=== PATIENT | male | born 2000 | race Caucasian/White ===

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

== ENCOUNTER 2019-01-01 17:53 | Emergency (ER) | payer SELFPAY ==
[~2019-01-01] VITALS: Ht 167.6 cm; Wt 60.0 kg
[~2019-01-01 17:53] MED LIST changes: +AUGM875T28 PO; +MECL-68 PO
[2019-01-01 17:54] VITALS: BP 133/80
== END 2019-01-01 20:00 | disposition left against medical advice (07) ==
LOC: M ED 17:53
DX: R42 Dizziness and giddiness (principal); Z53.21 Procedure and treatment not carried out due to patient leaving prior to being seen by health care provider

== ENCOUNTER 2020-08-30 23:12 | Emergency (ER) | payer OTHER, SELFPAY ==
[~2020-08-30] VITALS: Ht 167.6 cm; Wt 60.0 kg
[~2020-08-30 23:12] MED LIST changes: -MECL-68 PO; +MECL1TAB31 PO
--- OUTSIDE RECORDS SUMMARY | 2020-08-30 23:17 | CCD ---
Author Author [facility] Organization [facility] Address Unknown Phone Unavailable Care Team Providers Care Merchant Banker Name Role Phone Ana Tong Unavailable Unavailable Clifford TongBC Unavailable Unavailable Tong, F Ana PRINT COLOR OPERATOR-BC Unavailable Unavailable Tong, F Ana PRINT COLOR OPERATOR-BC Unavailable Unavailable Tong, F Ana PRINT COLOR OPERATOR-BC Unavailable Unavailable Tong, F Ana PRINT COLOR OPERATOR-BC Unavailable Unavailable Tong, F Ana PRINT COLOR OPERATOR-BC Unavailable Unavailable Tong, F Ana PRINT COLOR OPERATOR-BC Unavailable Unavailable Tong, F Ana PRINT COLOR OPERATOR-BC Unavailable Unavailable Tong, F Ana PRINT COLOR OPERATOR-BC Unavailable Unavailable Tong, F Ana PRINT COLOR OPERATOR-BC Unavailable Unavailable Tong, F Ana PRINT COLOR OPERATOR-BC Unavailable Unavailable Tong, F Ana PRINT COLOR OPERATOR-BC Unavailable Unavailable Tong, F Ana PRINT COLOR OPERATOR-BC Unavailable Unavailable Tong, F Ana PRINT COLOR OPERATOR-BC Unavailable Unavailable Tong, F Ana PRINT COLOR OPERATOR-BC Unavailable Unavailable Tong, F Ana PRINT COLOR OPERATOR-BC Unavailable Unavailable Tong, F Ana PRINT COLOR OPERATOR-BC Unavailable Unavailable Tong, F Ana PRINT COLOR OPERATOR-BC Unavailable Unavailable Tong, F Ana PRINT COLOR OPERATOR-BC Unavailable Unavailable Tong, F Ana PRINT COLOR OPERATOR-BC Unavailable Unavailable Tong, F Ana PRINT COLOR OPERATOR-BC Unavailable Unavailable Re-disclosure Warning The records that you are about to access may contain information from federally-assisted alcohol or drug abuse programs. If such information is present, then the following federally mandated warning applies: This information has been disclosed to you from records protected by federal confidentiality rules (42 CFR part 2). The federal rules prohibit you from making any further disclosure of this information unless further disclosure is expressly permitted by the written consent of the person to whom it pertains or as otherwise permitted by 42 CFR part 2. A general authorization for the release of medical or other information is NOT sufficient for this purpose. The Federal rules restrict any use of the information to criminally investigate or prosecute any alcohol or drug abuse patient.The records that you are about to access may contain highly sensitive health information, the redisclosure of which is protected by Article 27-F of the [facility] Public Health law. If you continue you may have access to information: Regarding HIV / AIDS; Provided by facilities licensed or operated by the [facility] Office of Mental Health; or Provided by the [facility] Office for People With Developmental Disabilities. If such information is present, then the following [facility] mandated warning applies: This information has been disclosed to you from confidential records which are protected by state law. State law prohibits you from making any further disclosure of this information without the specific written consent of the person to whom it pertains, or as otherwise permitted by law. Any unauthorized further disclosure in violation of state law may result in a fine or fci sentence or both. A general authorization for the release of medical or other information is NOT sufficient authorization for further disc losure. Encounters Encounter Providers Location Date Indications Data Source(s ) Outpatient Attender: ROBERT JONES 01/27/2020 07:25:12 PM EDT [facility] Outpatient Attender: ROBERT JONES 01/17/2020 12:03:16 AM EDT [facility] Outpatient Attender: Ana Ran SANDERSONP-BC 01/01/2020 03: 56:00 PM EDT [facility] Outpatient Attender: ROBERT JONES 08/19/2019 08:59:01 AM [facility] Outpatient Attender: Ana Ran SANDERSONP-BC 08/18/2019 02: 53:01 PM [facility] Outpatient Attender: ROBERT JONES 08/18/2019 02:53:00 PM [facility] Insurance Providers Payer name Policy type / Coverage type Policy ID Covered libertarian ID Covered libertarian's relationship to covarrubias Policy Covarrubias Plan Information SELF PAY ONLY [id number] SP [id number] Managed Care [place] P [id number] S [id number] Medicaid S [id number] S [id number] MEDICAID [id number] SP [id number] SELF PAY O [id number] S [id number] ERROL [id number] SP [id number] Managed Care [place] P [id number] S [id number] SELF PAY UNAVAILABLE WC2 UNAVAIL[place] BLE [facility] [id number] SP [id number] [facility] [id number] FA [id number] MEDICAID [id number] SP [id number] Self Pay S UNAVAILABLE S [place] BLE Medicaid P [id number] S [id number] zzMedicaid FFS S [id number] S [id number] Self Pay P na S na Medicaid Dental O [id number] S [id number]
--- OUTSIDE RECORDS SUMMARY | 2020-08-31 01:55 | CCD ---
Author Author [facility] Organization [facility] Address Unknown Phone Unavailable Care Team Providers Care Tip Stitcher Name Role Phone Ana Tong Unavailable Unavailable Clifford Tong Unavailable Unavailable Clifford Tong Unavailable Unavailable Tong, F Ana MARKETING FINANCE SPECIALIST-BC Unavailable Unavailable Tong, F Ana MARKETING FINANCE SPECIALIST-BC Unavailable Unavailable Tong, F Ana MARKETING FINANCE SPECIALIST-BC Unavailable Unavailable Tong, F Ana MARKETING FINANCE SPECIALIST-BC Unavailable Unavailable Tong, F Ana MARKETING FINANCE SPECIALIST-BC Unavailable Unavailable Tong, F Ana MARKETING FINANCE SPECIALIST-BC Unavailable Unavailable Tong, F Ana MARKETING FINANCE SPECIALIST-BC Unavailable Unavailable Tong, F Ana MARKETING FINANCE SPECIALIST-BC Unavailable Unavailable Tong, F Ana MARKETING FINANCE SPECIALIST-BC Unavailable Unavailable Tong, F Ana MARKETING FINANCE SPECIALIST-BC Unavailable Unavailable Tong, F Ana MARKETING FINANCE SPECIALIST-BC Unavailable Unavailable Tong, F Ana MARKETING FINANCE SPECIALIST-BC Unavailable Unavailable Tong, F Ana MARKETING FINANCE SPECIALIST-BC Unavailable Unavailable Tong, F Ana MARKETING FINANCE SPECIALIST-BC Unavailable Unavailable Tong, F Ana MARKETING FINANCE SPECIALIST-BC Unavailable Unavailable Tong, F Ana MARKETING FINANCE SPECIALIST-BC Unavailable Unavailable Tong, F Ana MARKETING FINANCE SPECIALIST-BC Unavailable Unavailable Tong, F Ana MARKETING FINANCE SPECIALIST-BC Unavailable Unavailable Tong, F Ana MARKETING FINANCE SPECIALIST-BC Unavailable Unavailable Re-disclosure Warning The records that [...] is protected by Article 27-F of the [facility] Public Health law. If you continue you may have access to information: Regarding HIV / AIDS; Provided by facilities licensed or operated by the [facility] Office of Mental Health; or Provided by the [facility] Office for People With Developmental Disabilities. If such information is present, then the following [facility] mandated warning applies: This information has [...] law may result in a fine or fpc sentence or both. A general authorization for the release of medical or other information is NOT sufficient authorization for further disc losure. Encounters Encounter Providers Location Date Indications Data Source(s ) Outpatient Attender: ROBERT JONES 01/27/2020 07:25:12 PM EDT [facility] Outpatient Attender: ROBERT JONES 01/17/2020 12:03:16 AM EDT [facility] Outpatient Attender: Anaalex JONES-BC 01/01/2020 03: 56:00 PM EDT [facility] Outpatient Attender: ROBERT JONES 08/19/2019 08:59:01 AM [facility] Outpatient Attender: Anaalex SANDERSONP-BC 08/18/2019 02: 53:01 PM [facility] Outpatient Attender: ROBERT JONES 08/18/2019 02:53:00 PM [facility] Insurance Providers Payer name Policy type / Coverage type Policy ID Covered democrat ID Covered democrat's relationship to covarrubias Policy Covarrubias Plan Information SELF PAY ONLY [id number] SP [id number] Managed Care [place] P [id number] S [id number] Medicaid S [id number] S [id number] MEDICAID [id number] SP [id number] SELF PAY O [id number] S [id number] ERROL [id number] SP [id number] Managed Care [place] P [id number] S [id number] SELF PAY UNAVAILABLE WC2 UNA[place] BLE [facility] [id number] SP [id number] [facility] [id number] 09 [id number] MEDICAID [id number] SP [id number] Self Pay S UNAVAILABLE S [place] BLE Medicaid P [id number] S [id number] zzMedicaid FFS S [id number] S [id number] Self Pay P na S na Medicaid Dental O [id number] S [id number]
--- NOTE | 2020-08-31 02:17 | REPVR ---
PROCEDURE INFORMATION: Exam: XR Abdomen, 1 View Exam date and time: 08/31/2020 1:34 AM Age: 20 years old Clinical indication: Abdominal pain; Acute; Additional info: Bilat testicular pain, penile "thickening" TECHNIQUE: Imaging protocol: XR of the abdomen. Views: Frontal supine view of the abdomen. 1 View. COMPARISON: Scrotal, US 08/31/2020 1:56:34 AM FINDINGS: Gastrointestinal tract: Unremarkable. No bowel dilation is noted. Bones/joints: Unremarkable. Soft tissues: No obvious soft tissue gas is identified. IMPRESSION: No acute findings. Electronically signed by: Drake Sandoval On 08/31/2020 02:17:35 AM
--- NOTE | 2020-08-31 02:22 | REPVR ---
PROCEDURE INFORMATION: Exam: US Scrotum and US Duplex Artery and Vein, Scrotum, Complete Exam date and time: 08/31/2020 2:11 AM Age: 20 years old Clinical indication: Scrotum pain; Additional info: Testicular pain bilaterally, penile "thickening" TECHNIQUE: Imaging protocol: Real-time ultrasound of the scrotum. Real-time duplex ultrasound scan of the arterial and venous flow of the scrotum with B-mode, color Doppler flow and spectral waveform analysis. Complete exam. Duplex images required to evaluate vascular conditions. COMPARISON: No relevant prior studies available. FINDINGS: Right testicle: Normal. No mass. No torsion. No orchitis. Normal Duplex waveforms and color doppler. The right testicle measures 4.6 cm x 2.4 cm x 2.9 cm. Left testicle: Normal. No mass. No torsion. No orchitis. Normal Duplex waveforms and color doppler. The left testicle measures 4.5 cm x 2.2 cm x 2.7 cm. Epididymides: Normal. No epididymitis. Scrotum: Normal. No hydrocele. IMPRESSION: Normal scrotal ultrasound. Electronically signed by: Drake Sandoval On 08/31/2020 02:23:22 AM
[2020-08-31 04:15] LABS: CHLAMYDIA DNA AMPLIFICATION NEGATIVE (NEGATIVE); GC DNA AMPLIFICATION NEGATIVE (NEGATIVE)
[2020-08-31 05:25] VITALS: BP 150/87
== END 2020-08-31 05:35 | disposition home or self-care (01) ==
LOC: M ED 23:12
DX: R10.9 Unspecified abdominal pain (principal); F41.9 Anxiety disorder, unspecified

== ENCOUNTER 2020-09-08 02:46 | Emergency (ER) | payer OTHER ==
[~2020-09-08] VITALS: Ht 167.6 cm; Wt 60.1 kg
--- OUTSIDE RECORDS SUMMARY | 2020-09-08 02:55 | CCD ---
Author Author [facility] Organization [facility] Address Unknown Phone Unavailable Care Team Providers Care Pharmaceutical Compounding Supervisor Name Role Phone Ana Tong Unavailable Unavailable Clifford Tong Unavailable Unavailable Clifford Tong Unavailable Unavailable Tong, F Ana TUCKPOINTER CLEANER CAULKER-BC Unavailable Unavailable Tong, F Ana TUCKPOINTER CLEANER CAULKER-BC Unavailable Unavailable Tong, F Ana TUCKPOINTER CLEANER CAULKER-BC Unavailable Unavailable Tong, F Ana TUCKPOINTER CLEANER CAULKER-BC Unavailable Unavailable Tong, F Ana TUCKPOINTER CLEANER CAULKER-BC Unavailable Unavailable Tong, F Ana TUCKPOINTER CLEANER CAULKER-BC Unavailable Unavailable Tong, F Ana TUCKPOINTER CLEANER CAULKER-BC Unavailable Unavailable Tong, F Ana TUCKPOINTER CLEANER CAULKER-BC Unavailable Unavailable Tong, F Ana TUCKPOINTER CLEANER CAULKER-BC Unavailable Unavailable Tong, F Ana TUCKPOINTER CLEANER CAULKER-BC Unavailable Unavailable Tong, F Ana TUCKPOINTER CLEANER CAULKER-BC Unavailable Unavailable Tong, F Ana TUCKPOINTER CLEANER CAULKER-BC Unavailable Unavailable Tong, F Ana TUCKPOINTER CLEANER CAULKER-BC Unavailable Unavailable Tong, F Ana TUCKPOINTER CLEANER CAULKER-BC Unavailable Unavailable Tong, F Ana TUCKPOINTER CLEANER CAULKER-BC Unavailable Unavailable Tong, F Ana TUCKPOINTER CLEANER CAULKER-BC Unavailable Unavailable Tong, F Ana TUCKPOINTER CLEANER CAULKER-BC Unavailable Unavailable Tong, F Ana TUCKPOINTER CLEANER CAULKER-BC Unavailable Unavailable Tong, F Ana TUCKPOINTER CLEANER CAULKER-BC Unavailable Unavailable Tong, F Ana TUCKPOINTER CLEANER CAULKER-BC Unavailable Unavailable Re-disclosure Warning The records that [...] is protected by Article 27-F of the [facility] Public Health law. If you continue you may have access to information: Regarding HIV / AIDS; Provided by facilities licensed or operated by the [facility] Office of Mental Health; or Provided by the [facility] Office for People With Developmental Disabilities. If such information is present, then the following [facility] mandated warning applies: This information has [...] law may result in a fine or nursing home sentence or both. A general authorization for the release of medical or other information is NOT sufficient authorization for further disc losure. Encounters Encounter Providers Location Date Indications Data Source(s ) Outpatient Attender: ROBERT JONES 01/27/2020 07:25:12 PM EDT [facility] Outpatient Attender: ROBERT JONES 01/17/2020 12:03:16 AM EDT [facility] Outpatient Attender: Anaalex SANDERSONP-BC 01/01/2020 03: 56:00 PM EDT [facility] Outpatient Attender: ROBERT JONES 08/19/2019 08:59:01 AM [facility] Outpatient Attender: Anaalex JONES-BC 08/18/2019 02: 53:01 PM [facility] Outpatient Attender: ROBERT JONES 08/18/2019 02:53:00 PM [facility] Insurance Providers Payer name Policy type / Coverage type Policy ID Covered libertarian ID Covered libertarian's relationship to covarrubias Policy Covarrubias Plan Information ERROL [id number] SP [id number] ERROL [id number] SP [id number] SELF PAY ONLY [id number] SP [id number] Managed Care [place] P [id number] S [id number] Medicaid S [id number] S [id number] MEDICAID [id number] SP [id number] SELF PAY O [id number] S [id number] Managed Care [place] P [id number] S [id number] SELF PAY UNAVAILABLE WC2 UNAVAILA BLE [facility] [id number] SP [id number] [facility] [id number] MEDICAID [id number] SP [id number] Self Pay S UNAVAILABLE S U[place] BLE Medicaid P [id number] S [id number] zzMedicaid FFS S [id number] S [id number] Self Pay P na S na Medicaid Dental O [id number] S [id number]
[2020-09-08] MEDS ORDERED: COLA100C5 PO (06:50)
[2020-09-08] MEDS ORDERED: DULC10SU2 PR (06:50)
[2020-09-08] MEDS ORDERED: HYDR25OIN TOP (06:50)
--- OUTSIDE RECORDS SUMMARY | 2020-09-08 06:58 | CCD ---
Author Author [facility] Organization [facility] Address Unknown Phone Unavailable Care Team Providers Care Debrander Name Role Phone Ana Tong Unavailable Unavailable Clifford Tong Unavailable Unavailable Clifford Tong Unavailable Unavailable Tong, F Ana SOFTWARE IMPLEMENTATION PROJECT MANAGER-BC Unavailable Unavailable Tong, F Ana SOFTWARE IMPLEMENTATION PROJECT MANAGER-BC Unavailable Unavailable Tong, F Ana SOFTWARE IMPLEMENTATION PROJECT MANAGER-BC Unavailable Unavailable Tong, F Ana SOFTWARE IMPLEMENTATION PROJECT MANAGER-BC Unavailable Unavailable Tong, F Ana SOFTWARE IMPLEMENTATION PROJECT MANAGER-BC Unavailable Unavailable Tong, F Ana SOFTWARE IMPLEMENTATION PROJECT MANAGER-BC Unavailable Unavailable Tong, F Ana SOFTWARE IMPLEMENTATION PROJECT MANAGER-BC Unavailable Unavailable Tong, F Ana SOFTWARE IMPLEMENTATION PROJECT MANAGER-BC Unavailable Unavailable Tong, F Ana SOFTWARE IMPLEMENTATION PROJECT MANAGER-BC Unavailable Unavailable Tong, F Ana SOFTWARE IMPLEMENTATION PROJECT MANAGER-BC Unavailable Unavailable Tong, F Ana SOFTWARE IMPLEMENTATION PROJECT MANAGER-BC Unavailable Unavailable Tong, F Ana SOFTWARE IMPLEMENTATION PROJECT MANAGER-BC Unavailable Unavailable Tong, F Ana SOFTWARE IMPLEMENTATION PROJECT MANAGER-BC Unavailable Unavailable Tong, F Ana SOFTWARE IMPLEMENTATION PROJECT MANAGER-BC Unavailable Unavailable Tong, F Ana SOFTWARE IMPLEMENTATION PROJECT MANAGER-BC Unavailable Unavailable Tong, F Ana SOFTWARE IMPLEMENTATION PROJECT MANAGER-BC Unavailable Unavailable Tong, F Ana SOFTWARE IMPLEMENTATION PROJECT MANAGER-BC Unavailable Unavailable Tong, F Ana SOFTWARE IMPLEMENTATION PROJECT MANAGER-BC Unavailable Unavailable Tong, F Ana SOFTWARE IMPLEMENTATION PROJECT MANAGER-BC Unavailable Unavailable Tong, F Ana SOFTWARE IMPLEMENTATION PROJECT MANAGER-BC Unavailable Unavailable Re-disclosure Warning The records that [...] is protected by Article 27-F of the [facility] Public Health law. If you continue you may have access to information: Regarding HIV / AIDS; Provided by facilities licensed or operated by the [facility] Office of Mental Health; or Provided by the [facility] Office for People With Developmental Disabilities. If such information is present, then the following [facility] mandated warning applies: This information has been [...] law may result in a fine or mcc sentence or both. A general authorization for the release of medical or other information is NOT sufficient authorization for further disc losure. Encounters Encounter Providers Location Date Indications Data Source(s ) Outpatient Attender: ROBERT JONES 01/27/2020 07:25:12 PM EDT [facility] Outpatient Attender: ROBERT JONES 01/17/2020 12:03:16 AM EDT [facility] Outpatient Attender: Anaalex SANDERSONP-BC 01/01/2020 03: 56:00 PM EDT [facility] Outpatient Attender: ROBERT JONES 08/19/2019 08:59:01 AM [facility] Outpatient Attender: Anaalex JONES-BC 08/18/2019 02: 53:01 PM [facility] Outpatient Attender: ROBERT JONES 08/18/2019 02:53:00 PM [facility] Insurance Providers Payer name Policy type / Coverage type Policy ID Covered constitution party ID Covered constitution party's relationship to covarrubias Policy Covarrubias Plan Information ERROL [id number] SP [id number] 100 ERROL [id number] SP [id number] SELF PAY ONLY [id number] SP [id number] Managed Care [place] P [id number] S [id number] Medicaid S [id number] S [id number] MEDICAID [id number] SP [id number] SELF PAY O [id number] S [id number] Managed Care [place] P [id number] S [id number] SELF PAY UNAVAILABLE WC2 UNAVAILA BLE [facility] [id number] SP [id number] [facility] [id number] MEDICAID [id number] SP [id number] Self Pay S UNAVAILABLE S [place] BLE Medicaid P [id number] S [id number] zzMedicaid FFS S [id number] S [id number] Self Pay P na S na Medicaid Dental O [id number] S [id number]
[2020-09-08 07:19] VITALS: BP 113/72
== END 2020-09-08 07:25 | disposition home or self-care (01) ==
LOC: M ED 02:46
DX: R21 Rash and other nonspecific skin eruption (principal); K59.00 Constipation, unspecified

== ENCOUNTER 2022-08-19 02:42 | Inpatient (IN) | payer OTHER ==
[~2022-08-19] VITALS: Ht 167.6 cm; Wt 59.1 kg
[~2022-08-19 02:42] MED LIST changes: +COLA100C5 PO; +DULC10SU2 PR; +HYDR25OIN TOP
[2022-08-19 03:18] LABS: HEMATOCRIT 46.9 % (42.0-52.0); HEMOGLOBIN 16.8 g/dl (13.5-17.5); MEAN CORPUSCULAR HEMOGLOBIN 29.5 pg (27.0-33.0); MEAN CORPUSCULAR HGB CONC 35.8 g/dl (32.0-36.5); MEAN CORPUSCULAR VOLUME 82.4 fl (80.0-96.0); PLATELET COUNT, AUTOMATED 327 10^3/uL (150-450); RED BLOOD COUNT 5.69 10^6/uL (4.30-6.10); WHITE BLOOD COUNT 8.7 10^3/uL (4.0-10.0)
[2022-08-19 03:53] LABS: RSV AMPLIFICATION NEGATIVE (NEGATIVE)
[2022-08-19 04:18] LABS: ETHYL ALCOHOL (ETHANOL) 0.127 % (0.000-0.010)
[2022-08-19 04:19] LABS: SALICYLATE LEVEL < 3.0 MG/DL (<30)
[2022-08-19 04:20] LABS: BILIRUBIN,DIRECT 0.7 MG/DL (<0.4)
[2022-08-19 04:41] LABS: ACETAMINOPHEN LEVEL < 2.0 UG/ML (10.0-20.0); ALBUMIN 4.6 G/DL (3.2-5.2); ALKALINE PHOSPHATASE 89 U/L (46-116); ALT/SGPT 15 U/L (7.0-40); AST/SGOT 19 U/L (<34); BILIRUBIN,TOTAL 2.3 MG/DL (0.3-1.2); BLOOD UREA NITROGEN < 5 MG/DL (9-23); CALCIUM LEVEL 9.4 MG/DL (8.5-10.1); CARBON DIOXIDE LEVEL 21 MMOL/L (20-31); CHLORIDE LEVEL 103 MMOL/L (98-107); CREATININE FOR GFR 0.67 MG/DL (0.70-1.30); GLOMERULAR FILTRATION RATE > 60.0 (>60); GLUCOSE, FASTING 107 MG/DL (60-100); POTASSIUM SERUM 3.6 MMOL/L (3.5-5.1); SODIUM LEVEL 140 MMOL/L (136-145); TOTAL PROTEIN 7.6 G/DL (5.7-8.2)
[2022-08-19 04:47] LABS: AMPHETAMINES LEVEL URINE NEGATIVE (NEGATIVE); BARBITURATES URINE NEGATIVE (NEGATIVE); BENZODIAZEPINES URINE NEGATIVE (NEGATIVE); CANNABINOIDS URINE NEGATIVE (NEGATIVE); COCAINE METABOLITE URINE NEGATIVE (NEGATIVE); METHADONE URINE NEGATIVE (NEGATIVE); OPIATES URINE NEGATIVE (NEGATIVE); PHENCYCLIDINE URINE NEGATIVE (NEGATIVE)
[2022-08-19] MEDS ORDERED: traZODone 50 MG TAB PO PRN (06:45)
[2022-08-19] MEDS ORDERED: MAALOX 30 ML SUSP *UDC PO PRN (06:45)
[2022-08-19] MEDS ORDERED: ACETAMINOPHEN TAB 650MG DOSE (2X325MG) PO PRN (06:45)
[2022-08-19] MEDS ORDERED: MOM 30ML SUSPENSION UDC PO PRN (06:45)
[2022-08-19] MEDS ORDERED: LORazepam 2 MG TAB PO PRN (06:45)
[2022-08-19] MEDS ORDERED: HOME MED LIST COMPLETE! XX SCH (08:55)
[2022-08-19 09:00] VITALS: BP 125/88
[2022-08-19] MEDS: NICOTINE 14 MG/24 HR TRANSDERMAL TD SCH (09:00)
[2022-08-19] MEDS: MULTIVITAMINS/MINERALS THERAP 1 TAB PO SCH (10:07)
[2022-08-19] MEDS: THIAMINE 100 MG TAB PO SCH ×2 (10:07→22:33)
[2022-08-19] MEDS: FOLIC ACID 1MG TAB PO SCH (10:07)
[2022-08-19 11:50] VITALS: BP 137/95
[2022-08-19 17:00] VITALS: BP 138/79
[2022-08-19 23:50] VITALS: BP 137/95
[2022-08-20 07:00] VITALS: BP 121/79
[2022-08-20] MEDS: NICOTINE 14 MG/24 HR TRANSDERMAL TD SCH ×2 (09:00→09:28)
[2022-08-20] MEDS: MULTIVITAMINS/MINERALS THERAP 1 TAB PO SCH (09:20)
[2022-08-20] MEDS: FOLIC ACID 1MG TAB PO SCH (09:20)
[2022-08-20] MEDS: SERTRALINE HCL 25 MG TABLET PO SCH (09:21)
[2022-08-20] MEDS: THIAMINE 100 MG TAB PO SCH ×2 (09:21→20:53)
[2022-08-20 18:00] VITALS: BP 109/60
[2022-08-21 06:15] VITALS: BP 127/76
[2022-08-21] MEDS: FOLIC ACID 1MG TAB PO SCH (09:25)
[2022-08-21] MEDS: SERTRALINE HCL 25 MG TABLET PO SCH (09:25)
[2022-08-21] MEDS: THIAMINE 100 MG TAB PO SCH ×2 (09:25→21:27)
[2022-08-21] MEDS: NICOTINE 14 MG/24 HR TRANSDERMAL TD SCH (09:25)
[2022-08-21] MEDS: MULTIVITAMINS/MINERALS THERAP 1 TAB PO SCH (09:25)
[2022-08-21] MEDS ORDERED: NICO14PA TD (10:53)
[2022-08-21] MEDS ORDERED: SERT-141 PO (10:53)
[2022-08-21 16:21] VITALS: BP 137/85
[2022-08-22 06:39] VITALS: BP 121/68
[2022-08-22] MEDS: NICOTINE 14 MG/24 HR TRANSDERMAL TD SCH (08:43)
[2022-08-22] MEDS: SERTRALINE HCL 25 MG TABLET PO SCH (08:45)
[2022-08-22] MEDS: FOLIC ACID 1MG TAB PO SCH (08:45)
[2022-08-22] MEDS: MULTIVITAMINS/MINERALS THERAP 1 TAB PO SCH (08:45)
== END 2022-08-22 12:05 | disposition home or self-care (01) | DRG 753 ==
LOC: M ED 02:42 → M ED INP 06:42 → M PSY 09:03
PROVIDERS: ADMIT Student in an Organized Health Care Education/Training Program; ATTEND Psychiatry & Neurology Psychiatry
DX: F32.89 Other specified depressive episodes (principal); F60.89 Other specific personality disorders; F60.3 Borderline personality disorder; F10.920 Alcohol use, unspecified with intoxication, uncomplicated; Z56.0 Unemployment, unspecified; R45.851 Suicidal ideations; F17.290 Nicotine dependence, other tobacco product, uncomplicated; E80.6 Other disorders of bilirubin metabolism; Z20.822 Contact with and (suspected) exposure to COVID-19

== ENCOUNTER 2022-10-02 21:16 | Emergency (ER) | payer OTHER ==
[~2022-10-02] VITALS: Ht 167.6 cm; Wt 58.0 kg
[~2022-10-02 21:16] MED LIST changes: +NICO14PA TD; +SERT-141 PO
[2022-10-03] MEDS ORDERED: BOOSTRIX/ADACEL VACCINE (DIPHTH/PERTUSS/ACELL/TETANUS) 0.5ML SYR IM ONE (01:05)
[2022-10-03] MEDS ORDERED: DERMABOND TOPICAL SKIN ADHESIVE TOP ONE (01:05)
[2022-10-03 01:45] VITALS: BP 118/64
== END 2022-10-03 03:42 | disposition home or self-care (01) ==
LOC: M ED 21:16
DX: S61.214A Laceration without foreign body of right ring finger without damage to nail, initial encounter (principal); S61.210A Laceration without foreign body of right index finger without damage to nail, initial encounter; Y28.9XXA Contact with unspecified sharp object, undetermined intent, initial encounter; Y92.099 Unspecified place in other non-institutional residence as the place of occurrence of the external cause; Y93.89 Activity, other specified; J45.909 Unspecified asthma, uncomplicated; F41.9 Anxiety disorder, unspecified; F17.290 Nicotine dependence, other tobacco product, uncomplicated; Z79.899 Other long term (current) drug therapy

== ENCOUNTER 2022-10-08 04:34 | Emergency (ER) | payer OTHER ==
[~2022-10-08] VITALS: Ht 167.6 cm; Wt 60.0 kg
[2022-10-08 05:11] LABS: HEMATOCRIT 45.2 % (42.0-52.0); HEMOGLOBIN 15.9 g/dl (13.5-17.5); MEAN CORPUSCULAR HEMOGLOBIN 29.7 pg (27.0-33.0); MEAN CORPUSCULAR HGB CONC 35.2 g/dl (32.0-36.5); MEAN CORPUSCULAR VOLUME 84.3 fl (80.0-96.0); PLATELET COUNT, AUTOMATED 362 10^3/uL (150-450); RED BLOOD COUNT 5.36 10^6/uL (4.30-6.10); WHITE BLOOD COUNT 7.6 10^3/uL (4.0-10.0)
[2022-10-08 05:24] VITALS: BP 118/75
[2022-10-08 05:35] LABS: ETHYL ALCOHOL (ETHANOL) 0.222 % (0.000-0.010)
[2022-10-08 05:37] LABS: ACETAMINOPHEN LEVEL < 2.0 UG/ML (10.0-20.0); ALBUMIN 4.5 G/DL (3.2-5.2); ALKALINE PHOSPHATASE 81 U/L (46-116); ALT/SGPT 12 U/L (7.0-40); AST/SGOT 19 U/L (<34); BILIRUBIN,DIRECT 0.3 MG/DL (<0.4); BILIRUBIN,TOTAL 0.9 MG/DL (0.3-1.2); BLOOD UREA NITROGEN 10 MG/DL (9-23); CALCIUM LEVEL 8.8 MG/DL (8.5-10.1); CARBON DIOXIDE LEVEL 26 MMOL/L (20-31); CHLORIDE LEVEL 108 MMOL/L (98-107); CREATININE FOR GFR 0.72 MG/DL (0.70-1.30); GLOMERULAR FILTRATION RATE > 60.0 (>60); GLUCOSE, FASTING 100 MG/DL (60-100); SALICYLATE LEVEL < 3.0 MG/DL (<30); SODIUM LEVEL 144 MMOL/L (136-145); TOTAL PROTEIN 7.9 G/DL (5.7-8.2)
[2022-10-08 05:39] LABS: THYROID STIMULATING HORMONE 2.422 uIU/ML (0.55-4.78)
[2022-10-08 13:57] LABS: AMPHETAMINES LEVEL URINE NEGATIVE (NEGATIVE); BARBITURATES URINE NEGATIVE (NEGATIVE); BENZODIAZEPINES URINE NEGATIVE (NEGATIVE); CANNABINOIDS URINE NEGATIVE (NEGATIVE); COCAINE METABOLITE URINE NEGATIVE (NEGATIVE); METHADONE URINE NEGATIVE (NEGATIVE); OPIATES URINE NEGATIVE (NEGATIVE); PHENCYCLIDINE URINE NEGATIVE (NEGATIVE)
== END 2022-10-08 14:25 | disposition home or self-care (01) ==
LOC: M ED 04:34
DX: F10.129 Alcohol abuse with intoxication, unspecified (principal); F43.0 Acute stress reaction; F32.9 Major depressive disorder, single episode, unspecified; Z79.899 Other long term (current) drug therapy

== ENCOUNTER → 2022-10-23 | Outpatient (REF) | LOC: M EMP 08:28 | PROVIDERS: ATTEND Family Medicine | DX: Z11.52 Encounter for screening for COVID-19 (principal) ==

== ENCOUNTER 2022-11-15 22:01 | Emergency (ER) | payer OTHER ==
[2022-11-15 22:52] LABS: HEMATOCRIT 45.7 % (42.0-52.0); HEMOGLOBIN 16.2 g/dl (13.5-17.5); MEAN CORPUSCULAR HEMOGLOBIN 30.1 pg (27.0-33.0); MEAN CORPUSCULAR HGB CONC 35.4 g/dl (32.0-36.5); MEAN CORPUSCULAR VOLUME 84.8 fl (80.0-96.0); PLATELET COUNT, AUTOMATED 347 10^3/uL (150-450); RED BLOOD COUNT 5.39 10^6/uL (4.30-6.10); WHITE BLOOD COUNT 8.6 10^3/uL (4.0-10.0)
[2022-11-15 23:12] LABS: AMPHETAMINES LEVEL URINE NEGATIVE (NEGATIVE); BARBITURATES URINE NEGATIVE (NEGATIVE); BENZODIAZEPINES URINE NEGATIVE (NEGATIVE); COCAINE METABOLITE URINE NEGATIVE (NEGATIVE); METHADONE URINE NEGATIVE (NEGATIVE); OPIATES URINE NEGATIVE (NEGATIVE); PHENCYCLIDINE URINE NEGATIVE (NEGATIVE)
[2022-11-15 23:13] LABS: CANNABINOIDS URINE NEGATIVE (NEGATIVE); ETHYL ALCOHOL (ETHANOL) 0.242 % (0.000-0.010)
[2022-11-15 23:15] LABS: ACETAMINOPHEN LEVEL < 2.0 UG/ML (10.0-20.0); ALBUMIN 4.6 G/DL (3.2-5.2); ALKALINE PHOSPHATASE 77 U/L (46-116); ALT/SGPT 18 U/L (7.0-40); AST/SGOT 25 U/L (<34); BILIRUBIN,DIRECT 0.4 MG/DL (<0.4); BLOOD UREA NITROGEN 8 MG/DL (9-23); CALCIUM LEVEL 9.4 MG/DL (8.5-10.1); CARBON DIOXIDE LEVEL 26 MMOL/L (20-31); CHLORIDE LEVEL 108 MMOL/L (98-107); CREATININE FOR GFR 0.71 MG/DL (0.70-1.30); GLOMERULAR FILTRATION RATE > 60.0 (>60); GLUCOSE, FASTING 122 MG/DL (60-100); POTASSIUM SERUM 4.2 MMOL/L (3.5-5.1); SALICYLATE LEVEL < 3.0 MG/DL (<30); SODIUM LEVEL 142 MMOL/L (136-145); TOTAL PROTEIN 7.9 G/DL (5.7-8.2)
[2022-11-15 23:18] LABS: THYROID STIMULATING HORMONE 2.036 uIU/ML (0.55-4.78)
[2022-11-16] MEDS ORDERED: SERT50TA29 PO (06:22)
[2022-11-16] MEDS ORDERED: HOME MED LIST COMPLETE! XX SCH (06:25)
[2022-11-16 06:30] VITALS: BP 126/65
[2022-11-16] MEDS ORDERED: SERTRALINE HCL 50 MG TAB PO SCH (09:00)
== END 2022-11-16 13:53 | disposition home or self-care (01) ==
LOC: M ED 22:01
DX: F43.9 Reaction to severe stress, unspecified (principal); F31.9 Bipolar disorder, unspecified; G44.009 Cluster headache syndrome, unspecified, not intractable; F10.10 Alcohol abuse, uncomplicated

== ENCOUNTER 2023-06-22 19:23 | Emergency (ER) | payer OTHER ==
[~2023-06-22 19:23] MED LIST changes: +MECL-209 PO; -MECL1TAB31 PO; +SERT50TA29 PO
[2023-06-22 19:24] VITALS: BP 144/84; TEMP 98; O2SAT 99
== END 2023-06-23 02:02 | disposition home or self-care (01) ==
LOC: M ED 19:23
DX: S00.03XA Contusion of scalp, initial encounter (principal); W22.8XXA Striking against or struck by other objects, initial encounter; Y99.0 Civilian activity done for income or pay; Z79.899 Other long term (current) drug therapy

== ENCOUNTER 2023-06-29 22:18 | Emergency (ER) | payer OTHER ==
[~2023-06-29] VITALS: Ht 167.6 cm; Wt 60.5 kg
[2023-06-29 22:19] VITALS: BP 153/95; TEMP 98.8; O2SAT 99
[2023-06-29] MEDS ORDERED: ACET500T15 PO (22:22)
== END 2023-06-30 03:49 | disposition left against medical advice (07) ==
LOC: M ED 22:18
DX: Z53.21 Procedure and treatment not carried out due to patient leaving prior to being seen by health care provider (principal)

== ENCOUNTER 2023-06-30 09:27 | Emergency (ER) | payer OTHER ==
[~2023-06-30] VITALS: Ht 167.6 cm; Wt 59.5 kg
[~2023-06-30 09:27] MED LIST changes: +ACET500T15 PO
[2023-06-30 11:03] VITALS: BP 136/86; TEMP 98.8; O2SAT 97
== END 2023-06-30 11:12 | disposition home or self-care (01) ==
LOC: M ED 09:27
DX: S06.0X0A Concussion without loss of consciousness, initial encounter (principal); W22.8XXA Striking against or struck by other objects, initial encounter; Y92.9 Unspecified place or not applicable; Z79.1 Long term (current) use of non-steroidal anti-inflammatories (NSAID)

== ENCOUNTER 2025-05-22 15:08 | Emergency (ER) | payer SELFPAY ==
[~2025-05-22] VITALS: Ht 170.2 cm; Wt 59.1 kg
[~2025-05-22 15:08] MED LIST changes: +KETO-204 PO
[2025-05-22] MEDS: TETANUS/DIPHTH/ACEL. PERTUSSIS 0.5 ML SYR IM ONE (19:39)
[2025-05-22] MEDS: LIDOCAINE 1% MDV 20 ML VIAL SC ONE (19:40)
[2025-05-22 20:28] VITALS: BP 136/83; TEMP 97.5; O2SAT 100
== END 2025-05-22 20:30 | disposition home or self-care (01) ==
LOC: M ED 15:08
DX: S61.211A Laceration without foreign body of left index finger without damage to nail, initial encounter (principal); Y92.9 Unspecified place or not applicable; Y93.9 Activity, unspecified; Y99.9 Unspecified external cause status; W26.0XXA Contact with knife, initial encounter; F41.9 Anxiety disorder, unspecified; F32.A Depression, unspecified; Z23 Encounter for immunization

== ENCOUNTER 2025-06-08 00:11 | Emergency (ER) | payer MEDICAID, SELFPAY ==
[~2025-06-08] VITALS: Ht 167.6 cm; Wt 60.0 kg
[2025-06-08 00:34] LABS: BASO # 0.1 10^3/uL (0.0-0.2); BASO % 0.8 % (0.0-1.0); EOS # 0.2 10^3/uL (0.0-0.5); EOS % 2.1 % (0.0-3.0); LYMPH # 3.5 10^3/uL (1.5-5.0); LYMPH % 40.3 % (24.0-44.0); MONO # 0.8 10^3/uL (0.0-0.8); MONO % 9.5 % (2.0-8.0); NEUTROPHILS # 4.1 10^3/uL (1.5-8.5); NEUTROPHILS % 47.1 % (36.0-66.0); PLATELET COUNT, AUTOMATED 306 10^3/uL (150-450)
[2025-06-08 00:45] LABS: INR 1.07
[2025-06-08 01:00] LABS: CK-MB VALUE MASS < 1.0 NG/ML (<3.6)
[2025-06-08 01:01] LABS: ALT/SGPT 12 U/L (7.0-40); AST/SGOT 19 U/L (<34); CALCIUM LEVEL 9.7 MG/DL (8.5-10.1); CARBON DIOXIDE LEVEL 26 MMOL/L (20-31); CHLORIDE LEVEL 103 MMOL/L (98-107); CREATININE FOR GFR 0.95 MG/DL (0.70-1.30); GLOMERULAR FILTRATION RATE > 90.0 (>60); POTASSIUM SERUM 3.9 MMOL/L (3.5-5.1); SODIUM LEVEL 140 MMOL/L (136-145)
[2025-06-08 01:39] LABS: CPK CREATINE PHOSPHOKINASE 85 U/L (46-171)
[2025-06-08 04:15] VITALS: BP 114/83; TEMP 97.8; O2SAT 96
[2025-06-08] MEDS: IBUPROFEN 800 MG TAB PO ONE (04:27)
== END 2025-06-08 04:35 | disposition home or self-care (01) ==
LOC: M ED 00:11
DX: M94.0 Chondrocostal junction syndrome [Tietze] (principal); R07.89 Other chest pain; F41.9 Anxiety disorder, unspecified; F32.A Depression, unspecified